=== PATIENT | male | born 1995 | race Caucasian/White ===

== ENCOUNTER 2018-03-22 02:51 | Emergency (ER) | payer MEDICAID ==
[~2018-03-22] VITALS: Ht 165.1 cm; Wt 50.0 kg
[2018-03-22] MEDS ORDERED: SODIUM CHLORIDE 0.9% 500 ML IV ONE (03:30)
[2018-03-22 03:45] VITALS: BP 105/68
== END 2018-03-22 04:58 | disposition home or self-care (01) ==
LOC: ER 02:51
DX: F10.129 Alcohol abuse with intoxication, unspecified (principal); R11.2 Nausea with vomiting, unspecified; E10.65 Type 1 diabetes mellitus with hyperglycemia; Y90.9 Presence of alcohol in blood, level not specified; Z79.4 Long term (current) use of insulin; Z96.41 Presence of insulin pump (external) (internal)
CPT/HCPCS: 82962; 96360; 99284; J7040